=== PATIENT | male | born 1985 | race Two or more races ===

== ENCOUNTER 2016-12-06 12:09 | Emergency (ER) | payer SELFPAY ==
[2016-12-06] MEDS ORDERED: Tetan/Diph/Pertus SYR(Tdap)* 0.5 ML SYR(BOOSTRIX) use SYR IM ONE (12:39)
[2016-12-06 14:45] VITALS: BP 116/72
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
== END 2016-12-06 16:50 | disposition home or self-care (01) ==
LOC: ED 12:09
DX: S09.90XA Unspecified injury of head, initial encounter (principal); S00.81XA Abrasion of other part of head, initial encounter; V49.9XXA Car occupant (driver) (passenger) injured in unspecified traffic accident, initial encounter; Y93.89 Activity, other specified; Y92.9 Unspecified place or not applicable; Z87.891 Personal history of nicotine dependence
CPT/HCPCS: 90471; 90715; 99282